=== PATIENT | male | born 1995 | race Caucasian/White ===

== ENCOUNTER 2016-10-18 18:19 | Emergency (ER) | payer OTHER ==
[~2016-10-18] VITALS: Ht 182.9 cm; Wt 96.7 kg
[~2016-10-18 18:19] MED LIST: LEVO.125 PO; NOVOLOGP2
[2016-10-18 18:23] VITALS: BP 131/79; PULSE 53; RESP 18; TEMP 98.5; O2SAT 98
[2016-10-18] MEDS ORDERED: insulin pump SQ (18:50)
[2016-10-18] MEDS ORDERED: DOXY100C PO (19:03)
--- NOTE | 2016-10-18 19:04 | PD ---
HPI Chief Complaint: Laceration/Skin Injury Time Seen by Provider: 18:45 Travel History International Travel<30 days: No Contact w/Intl Traveler<30days: No Traveled to known affect area: No History of Present Illness HPI 21-year-old male presents emergency department for evaluation of laceration to left hand. Patient reports he was shucking oysters when a sharp piece of the oyster shell broke off puncturing his left palm. He reports he removed the entire piece in full. He reports there is no possibility retained foreign body. He has a 1 cm laceration to the left palm in the thenar region. He reports normal sensation and full range of motion of the thumb. Symptom severity is mild. No aggravating or alleviating factors. PFSH Past Medical History Autoimmune Disease: No Anxiety: No Depression: Yes (DIABETIC AGE DIFFICULTIES) Cardiovascular Problems: No Diabetes: Yes (Type 1) Patient Takes Glucophage: No Diminished Hearing: No Gastrointestinal Disorders: Yes Genitourinary: No Musculoskeletal: No Neurologic: No Psychiatric: No Respiratory: No Immunizations Current: Yes Sickle Cell Disease: No Thyroid Disease: Yes (hypothyroid) Tetanus Vaccination: Unknown Influenza Vaccination: Yes Past Surgical History Abdominal Surgery: No Appendectomy: No Cardiac Surgery: No Cholecystectomy: No Ear Surgery: No Endocrine Surgery: No Eye Surgery: No Genitourinary Surgery: No Gynecologic Surgery: No Neurologic Surgery: No Oral Surgery: No Thoracic Surgery: No Other Surgery: Yes (rhinoplasty) Social History Alcohol Use: No (Rarely) Tobacco Use: No Substance Use: No Allergies-Medications (Allergen,Severity, Reaction): Coded Allergies: No Known Allergies (Verified , 10/18/16) Reported Meds & Prescriptions Reported Meds & Active Scripts Active Reported [insulin pump] 1 Unit SQ DIRECTED Review of Systems Except as stated in HPI: all other systems reviewed are Neg General / Constitutional: No: Fever Eyes: No: Visual changes HENT: No: Headaches Cardiovascular: No: Chest Pain or Discomfort Respiratory: No: Shortness of Breath Gastrointestinal: No: Abdominal Pain Physical Exam Narrative GENERAL: Well-nourished, well-developed patient. SKIN: Focused skin assessment warm/dry. 1 cm puncture wound/laceration left palm thenar region. No foreign body visualized. No tendon injury visualized. HEAD: Normocephalic. EYES: No scleral icterus. No injection or drainage. NECK: Supple, trachea midline. No JVD or lymphadenopathy. CARDIOVASCULAR: Regular rate and rhythm without murmurs, gallops, or rubs. RESPIRATORY: Breath sounds equal bilaterally. No accessory muscle use. MUSCULOSKELETAL: Left hand: Full range of motion and normal sensation of left thumb. Brisk cap refill. 1 cm puncture wound/laceration left palm thenar aspect. Wound edges are well approximated. No foreign bodies visualized. No tendon injuries visualized. Risks Refill. Data Data Last Documented VS Vital Signs Date Time Temp Pulse Resp B/P Pulse Ox O2 Delivery O2 Flow Rate FiO2 10/18/16 18:23 98.5 53 18 131/79 98 MDM Medical Decision Making Medical Screen Exam Complete: Yes Emergency Medical Condition: Yes Differential Diagnosis Puncture wound, hand laceration, clinically unlikely tendon laceration, clinically unlikely retained foreign body Narrative Course 21-year-old male with a 1 cm puncture wound/laceration caused by oyster shell. Patient reports he does not suspect a retained foreign body and declines x-ray. On visual extraction I do not suspect foreign body. There is no evidence of tendon injury. The wound is clean. The wound was extensively irrigated. It will not be sutured closed due to risk of infection. Patient we put on doxycycline. He was instructed to follow-up in one to 2 days for wound recheck. Return precautions discussed. Patient verbalizes understanding and agrees to plan Diagnosis Primary Impression: Laceration of hand Qualified Code: S61.412A - Laceration of left hand without foreign body, initial encounter Referrals: Primary Care Physician Departure Forms: Tests/Procedures, Work Release Enter return to work date: Oct 20, 2016 Special Instructions: Patient may have limited use of left hand. Wound should not be submerged in water. Additional Instructions: Do not submerge the wound in water. Wash the area daily with soap and water. Dressed the area daily with a dressing. Take the antibiotics as prescribed. Return to the emergency department if he developed new or worsening symptoms such as increasing pain, increasing redness, swelling, drainage from the wound. Scripts Doxycycline Hyclate 100 Mg [id number] Mg PO BID #20 CAP Ref 0 Prov:Jennifer Baez 10/18/16 Disposition: 01 DISCHARGE HOME Condition: Stable Jennifer Baez Oct 18, 2016 19:04
== END 2016-10-18 19:20 | disposition home or self-care (01) ==
LOC: PHED 18:19
DX: S61.412A Laceration without foreign body of left hand, initial encounter (principal); W26.8XXA Contact with other sharp object(s), not elsewhere classified, initial encounter; Y93.89 Activity, other specified; Y92.511 Restaurant or cafe as the place of occurrence of the external cause; Y99.0 Civilian activity done for income or pay
CPT/HCPCS: 99283